=== PATIENT | male | born 1995 | race Caucasian/White ===

== ENCOUNTER 2019-01-05 13:43 | Emergency (ER) | payer OTHER, MEDICAID ==
[2019-01-05] MEDS ORDERED: TETANUS/DIPHTHERIA/PERTUSSIS 0.5 ML SYRINGE IM ONE (13:59)
[2019-01-05] MEDS ORDERED: LIDOCAINE 1% 2 ML VIAL SUBQ STA (14:05)
[2019-01-05] MEDS ORDERED: LIDOCAINE 1% 2 ML VIAL ONE (14:16)
[2019-01-05] MEDS ORDERED: BACITRACIN ZINC OINT 14 GM TOP STA (14:26)
--- NOTE | 2019-01-06 12:23 | ED Physician Documentation ---
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 there is some bleeding) Similar symptoms before: Has not had sx before Recently seen: Not recently seen - Treatment prior to arrival Treatment prior to arrival: none - Additonal information Additional information: Tetanus is not up to date Review of Systems Ten Systems: 10 systems reviewed and negative Constitutional: reports: Reviewed and negative Cardiac: reports: Reviewed and negative Respiratory: reports: Reviewed and negative GI: reports: Reviewed and negative Skin: reports: Laceration (s) Musculoskeletal: reports: Joint pain Immunocompromised: reports: Reviewed and negative PD PAST MEDICAL HISTORY - Past Medical History Past Medical History: No - Past Surgical History Past Surgical History: Yes - Allergies Allergies/Adverse Reactions: Allergies Allergy/AdvReac Type Severity Reaction Status Date / Time No Known Drug Allergies Allergy Verified 01/05/19 13:54 - Social History Does the pt smoke?: No Smoking Status: Never smoker Does the pt drink ETOH?: No Does the pt have substance abuse?: No - Immunizations Immunizations: TDAP >10years/unknown PD ED PE NORMAL - Vitals Vital signs reviewed: Yes - General General: Alert and oriented X 3, No acute distress, Well developed/nourished - HEENT HEENT: Atraumatic - Neck Neck: No JVD - Cardiac Cardiac: RRR - Respiratory Respiratory: No respiratory distress - Abdomen Abdomen: Non distended - Male Male : Deferred - Rectal Rectal: Deferred - Derm Derm: Normal color, Warm and dry - Extremities Extremities: No deformity, Normal ROM s pain - Neuro Neuro: Alert and oriented X 3, No motor deficit, No sensory deficit Eye Opening: Spontaneous Motor: Obeys Commands Verbal: Oriented GCS Score: 15 - Psych Psych: Normal mood, Normal affect PD ED PE EXPANDED - Derm Derm: Laceration(s) (approximately 3cm laceration to L pinky finger) Results - Vitals Vitals: Vital Signs - 24 hr 01/05/19 13:54 Temperature 36.6 C Heart Rate 75 Respiratory 16 Rate O2 Saturation 100 Oxygen O2 Source Room air Procedures - Laceration (location) Finger left Length in cm: 3 Wound type: Curved Neurovascular status: Sensory intact, Motor intact, Vascular intact Tendon involvement: Tendon intact Anesthesia: Lidocaine 1% (digital block) Wound Preparation: Irrigated copiously NS Skin layer closure: Nylon, Size #-0 - enter number (6-0), Sutures - enter # (3) Other: Patient tolerated well, No complications, Neurovascular intact, Dressing applied, Tetanus booster given Complexity: Simple PD MEDICAL DECISION MAKING - ED course Complexity details: re-evaluated patient, considered differential, d/w patient ED course: 23 y/o M with simple laceration to L pinky finger occurred at worked, repaired here with suture, updated tetanus. Pt is stable for discharge Departure - Departure Disposition: 01 Home, Self Care Clinical Impression: Finger laceration Qualifiers: Encounter type: initial encounter Finger: little finger Damage to nail status: without damage Foreign body presence: without foreign body Laterality: left Qualified Code(s): S61.217A - Laceration without foreign body of left little finger without damage to nail, initial encounter Condition: Stable Instructions: ED Laceration Ext Sutr Stap Tape Follow-Up: your, doctor [Other] - Within 1 week (in 1 week for suture removal by your PCP or the ED) Comments: Keep clean with soap and water. Cover if working. Return to the ED sooner if pus, redness or increased pain or swelling develop. Discharge Date/Time: 01/05/19 14:33
== END 2019-01-05 14:33 | disposition home or self-care (01) ==
LOC: ED 13:43
DX: S61.217A Laceration without foreign body of left little finger without damage to nail, initial encounter (principal); W27.8XXA Contact with other nonpowered hand tool, initial encounter; Y99.0 Civilian activity done for income or pay; Z23 Encounter for immunization
CPT/HCPCS: 1040M; 12002; 90471

== ENCOUNTER 2019-01-12 14:21 | Emergency (ER) | payer MEDICAID ==
[2019-01-12 14:27] VITALS: BP 103/63
--- NOTE | 2019-01-12 15:29 | ED Physician Documentation ---
PD HPI WOUND RECHECK - Stated complaint Stated Complaint: STITCH REMOVAL - Chief complaint Chief Complaint: Wound - Histroy obtained from History obtained from: Patient (Here for suture removal from the left pinky. No specific complaints.) PD PAST MEDICAL HISTORY - Past Surgical History Past Surgical History: Yes - Allergies Allergies/Adverse Reactions: Allergies Allergy/AdvReac Type Severity Reaction Status Date / Time No Known Drug Allergies Allergy Verified 01/05/19 13:54 - Social History Does the pt smoke?: No Smoking Status: Never smoker Does the pt drink ETOH?: No Does the pt have substance abuse?: No - Immunizations Immunizations: TDAP >10years/unknown PD ED PE NORMAL - Vitals Vital signs reviewed: Yes - General General: Alert and oriented X 3, No acute distress - Extremities Extremities: Other (Healing wound with 3 sutures in the left pinky, no evidence of dehiscence or infection. They were removed during examination replaced with steristrips) - Neuro Neuro: Alert and oriented X 3, Normal speech Results - Vitals Vitals: Vital Signs - 24 hr 01/12/19 14:25 Temperature 37 C Heart Rate 76 Respiratory 16 Rate Blood Pressure 103/63 O2 Saturation 100 Oxygen O2 Source Room air Departure - Departure Disposition: 01 Home, Self Care Clinical Impression: Visit for suture removal Condition: Good
== END 2019-01-12 15:30 | disposition home or self-care (01) ==
LOC: ED 14:21
DX: S61.217D Laceration without foreign body of left little finger without damage to nail, subsequent encounter (principal); Z48.02 Encounter for removal of sutures
CPT/HCPCS: 99281

== ENCOUNTER 2019-09-27 22:36 | Emergency (ER) | payer MEDICAID ==
[2019-09-27] MEDS ORDERED: HYDROcod/ACETAM 5/325 MG TABLET PO STA (23:11)
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
[2019-09-27 23:31] VITALS: BP 122/82
== END 2019-09-27 23:30 | disposition home or self-care (01) ==
LOC: ED 22:36
DX: S09.311A Primary blast injury of right ear, initial encounter (principal); S61.210A Laceration without foreign body of right index finger without damage to nail, initial encounter; S61.212A Laceration without foreign body of right middle finger without damage to nail, initial encounter; S61.214A Laceration without foreign body of right ring finger without damage to nail, initial encounter; S61.216A Laceration without foreign body of right little finger without damage to nail, initial encounter; W39.XXXA Discharge of firework, initial encounter; Y93.89 Activity, other specified
CPT/HCPCS: 99282; 99284; A9270

== ENCOUNTER 2021-11-19 20:30 | Emergency (ER) | payer MEDICAID ==
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
[2021-11-19] MEDS ORDERED: LIDOCAINE 1% 2 ML VIAL SUBQ STA (23:35)
[2021-11-20] MEDS ORDERED: BACITRACIN ZINC OINT 1 PACKET TOP STA (03:07)
[2021-11-20 03:18] VITALS: BP 110/63
== END 2021-11-20 03:17 | disposition home or self-care (01) ==
LOC: ED 20:30
DX: S01.511A Laceration without foreign body of lip, initial encounter (principal); W05.1XXA Fall from non-moving nonmotorized scooter, initial encounter
CPT/HCPCS: 12011; 99282; A9270